=== PATIENT | male | born 1995 | race African-American/Black ===

== ENCOUNTER 2019-07-20 01:46 | Emergency (ER) | payer OTHER ==
[~2019-07-20] VITALS: Ht 175.3 cm; Wt 90.7 kg
[2019-07-20 04:53] VITALS: BP 123/58
== END 2019-07-20 04:54 | disposition home or self-care (01) ==
LOC: ER 01:46
DX: F07.81 Postconcussional syndrome (principal); M79.672 Pain in left foot; M79.671 Pain in right foot; M79.89 Other specified soft tissue disorders

== ENCOUNTER 2019-07-22 21:43 | Emergency (ER) | payer OTHER ==
[~2019-07-22] VITALS: Ht 175.3 cm; Wt 90.7 kg
[2019-07-22] MEDS ORDERED: NAPROSYN500 MG PO (22:31)
[2019-07-22 23:00] VITALS: BP 134/65
== END 2019-07-22 23:00 | disposition home or self-care (01) ==
LOC: ER 21:43
DX: G44.309 Post-traumatic headache, unspecified, not intractable (principal); Z98.890 Other specified postprocedural states

== ENCOUNTER 2019-07-25 01:25 | Emergency (ER) | payer OTHER ==
[~2019-07-25] VITALS: Ht 175.3 cm; Wt 90.7 kg
[~2019-07-25 01:25] MED LIST: NAPROSYN500 MG PO
[2019-07-25 02:12] LABS: ABSOLUTE NEUTROPHILS 4.4 thou/uL (1.4-8.2); BASOPHILS 0.9 % (0.0-2.0); EOSINOPHILS 1.1 % (0.0-3.0); HEMATOCRIT 32.8 % (42.0-52.0); HEMOGLOBIN 10.7 gm/dL (14.0-18.0); LYMPHOCYTES 26.5 % (24.0-44.0); MCH 27.1 pg (26.0-34.0); MCHC 32.5 g/dL (28.0-37.0); MCV 83.5 fL (80.0-100.0); MONOCYTES 9.7 % (1.0-8.0); PLATELET COUNT 302 thou/uL (150-400); POLYS 61.8 % (36.0-66.0); RBC 3.93 mil/uL (4.50-6.00); RDW 15.8 % (10.5-14.5); WBC 7.2 thou/uL (4.0-11.0)
[2019-07-25 02:13] LABS: URINE BILIRUBIN NEGATIVE (Negative); URINE BLOOD NEGATIVE (Negative); URINE CLARITY CLEAR; URINE COLOR YELLOW; URINE GLUCOSE-RANDOM* NEGATIVE (Negative); URINE KETONES NEGATIVE (Negative); URINE LEUKOCYTES-REFLEX NEGATIVE (Negative); URINE NITRITE-REFLEX NEGATIVE (Negative); URINE PROTEIN (DIPSTICK) TRACE (Negative); URINE SPECIFIC GRAVITY >= 1.030 (1.005-1.035); URINE UROBILINOGEN 0.2 E.U./dl (0.2-1.0)
[2019-07-25 02:19] LABS: ANION GAP 10 mmol/L (7-16); BUN 11 mg/dL (7-18); CHLORIDE 101 mmol/L (98-107); CO2 26 mmol/L (21-32); CREATININE 0.8 mg/dL (0.7-1.3); GLUCOSE 112 mg/dL (74-106); POTASSIUM 3.2 mmol/L (3.5-5.1); SODIUM 137 mmol/L (136-145)
[2019-07-25 02:22] LABS: AMP/METHAMP Negative (Negative); BARBITURATES POSITIVE (Negative); BENZODIAZEPINES Negative (Negative); COCAINE Negative (Negative); METHADONE Negative (Negative); OPIATES Negative (Negative); PCP Negative (Negative)
[2019-07-25 02:25] LABS: ALBUMIN 3.9 g/dL (3.4-5.0); SALICYLATE < 2.8 mg/dL (2.8-20.0); SGOT 19 U/L (15-37); SGPT 18 U/L (30-65); TOTAL BILIRUBIN 0.3 mg/dL (<0.1-1.0); TOTAL PROTEIN 8.2 g/dL (6.4-8.2)
[2019-07-25 22:30] VITALS: BP 119/68
== END 2019-07-25 22:30 ==
LOC: ER 01:25
PROVIDERS: Emergency Medicine
DX: R45.851 Suicidal ideations (principal); F22 Delusional disorders; Z98.890 Other specified postprocedural states

== ENCOUNTER 2019-08-27 22:57 | Emergency (ER) | payer OTHER ==
[~2019-08-27] VITALS: Ht 175.3 cm; Wt 80.7 kg
[2019-08-27] MEDS ORDERED: RISPERDAL 3 MG T3 MG PO (23:28)
[2019-08-27] MEDS ORDERED: CITALOPRAM HBR40 MG PO (23:29)
[2019-08-27] MEDS ORDERED: ABILIFY10 MG PO (23:29)
[2019-08-27] MEDS ORDERED: CLONAZEPAM0.25 MG PO (23:30)
[2019-08-27] MEDS ORDERED: TRAZODONE HCL50 MG PO (23:31)
[2019-08-28 01:05] VITALS: BP 119/63
== END 2019-08-28 01:15 | disposition home or self-care (01) ==
LOC: ER 22:57
DX: F20.0 Paranoid schizophrenia (principal)